=== PATIENT | male | born 1995 | race Caucasian/White ===

== ENCOUNTER → 2017-04-21 | Outpatient (CLI) | payer SELFPAY ==
[~2017-04-21] MED LIST: HYDROCODONE BIT1 T11 PO; MOTRIN800 MG PO; TOBREX OPHTH S2.5 ML OPH
== END | disposition home or self-care (01) ==
LOC: RESCLI 03:53
DX: J01.10 Acute frontal sinusitis, unspecified (principal)

== ENCOUNTER → 2020-02-29 | Outpatient (CLI) | payer SELFPAY | END | disposition home or self-care (01) | LOC: RESCLI 00:41 | PROVIDERS: ATTEND Internal Medicine Nephrology | DX: B37.0 Candidal stomatitis (principal); F17.200 Nicotine dependence, unspecified, uncomplicated ==

== ENCOUNTER → 2020-07-18 | Outpatient (CLI) | payer SELFPAY ==
[2020-07-18 11:37] LABS: BILIRUBIN Negative (Negative); BLOOD Negative (Negative); CLARITY Clear (Clear); COLOR Yellow (Yellow); GLUCOSE Negative (Negative); KETONE Negative (Negative); LEUKO ESTERASE Negative (Negative); NITRITE Negative (Negative); PH 5.5 (4.5-8.0); UROBILINOGEN 0.2 E.U./dl (0.0-1.0)
[2020-07-18 11:46] LABS: MUCOUS TRACE
== END | disposition home or self-care (01) ==
LOC: RESCLI 08:27 → LAB 08:27
PROVIDERS: Internal Medicine; ATTEND Internal Medicine Nephrology
DX: B37.0 Candidal stomatitis (principal); R39.15 Urgency of urination; Z79.899 Other long term (current) drug therapy

== ENCOUNTER → 2020-10-02 | Outpatient (CLI) | payer SELFPAY ==
[2020-10-02 12:26] LABS: BILIRUBIN Negative (Negative); BLOOD Negative (Negative); CLARITY Clear (Clear); COLOR Yellow (Yellow); GLUCOSE Negative (Negative); KETONE Negative (Negative); LEUKO ESTERASE Negative (Negative); NITRITE Negative (Negative); UROBILINOGEN 0.2 E.U./dl (0.0-1.0)
[2020-10-02 12:27] LABS: BASO # 0.1 10*3/uL (0.0-0.1); BASO % 1.2 % (0.0-1.0); EOS # 0.2 10*3/uL (0.0-0.4); EOS % 2.5 % (1.0-4.0); HEMATOCRIT 48.1 % (42.0-52.0); LYMPH # 1.4 10*3/uL (1.3-4.4); MEAN CELL VOLUME 92.9 fl (80.0-94.0); MEAN CORPUSCULAR HGB 30.9 pg (27.0-31.0); MEAN CORPUSCULAR HGB CONC 33.3 g/dl (33.0-37.0); MEAN PLATELET VOLUME 9.6 fl (9.6-12.3); MONO # 0.7 10*3/uL (0.1-1.0); MONO % 12.4 % (3.0-9.0); NEUT # 3.5 10*3/uL (2.3-7.9); NEUT % 59.7 % (47.0-73.0); PLATELET COUNT AUTOMATED 214 10*3/uL (130-400); RED BLOOD COUNT 5.18 10*6/uL (4.50-5.90); RED CELL DISTRI WIDTH 12.7 % (0-14.5); WHITE BLOOD COUNT 5.9 10*3/uL (4.8-10.8)
== END | disposition home or self-care (01) ==
LOC: RESCLI 06:44
PROVIDERS: Internal Medicine; ATTEND Internal Medicine
DX: B37.0 Candidal stomatitis (principal); R09.82 Postnasal drip; R39.15 Urgency of urination; Z79.899 Other long term (current) drug therapy

== ENCOUNTER → 2021-05-21 | Outpatient (CLI) | payer SELFPAY | END | disposition home or self-care (01) | LOC: RESCLI 01:23 | PROVIDERS: ATTEND Family Medicine | DX: Z20.2 Contact with and (suspected) exposure to infections with a predominantly sexual mode of transmission (principal); Z79.899 Other long term (current) drug therapy ==

== ENCOUNTER → 2021-06-16 | Outpatient (CLI) | payer SELFPAY | END | disposition home or self-care (01) | LOC: RESCLI 01:24 | PROVIDERS: Internal Medicine; ATTEND Internal Medicine Nephrology | DX: Z20.2 Contact with and (suspected) exposure to infections with a predominantly sexual mode of transmission (principal); Z79.899 Other long term (current) drug therapy; Z98.890 Other specified postprocedural states; Z88.0 Allergy status to penicillin ==